=== PATIENT | male | born 2000 | race Hispanic/Latino ===

== ENCOUNTER 2022-11-01 13:54 | Emergency (ER) | payer OTHER ==
[~2022-11-01] VITALS: Ht 167.6 cm; Wt 63.5 kg
[2022-11-01 14:21] VITALS: BP 130/57
[2022-11-01] MEDS ORDERED: ACETAMINOPHEN 500 MG TABLET PO ONE (16:00)
[2022-11-01] MEDS ORDERED: ACET-66 PO (17:03)
[2022-11-01] MEDS ORDERED: CYCL5TAB PO (17:03)
== END 2022-11-01 17:36 | disposition home or self-care (01) ==
LOC: EDH 13:54
DX: S39.012A Strain of muscle, fascia and tendon of lower back, initial encounter (principal); I10 Essential (primary) hypertension; V43.62XA Car passenger injured in collision with other type car in traffic accident, initial encounter; Y93.89 Activity, other specified; Y92.89 Other specified places as the place of occurrence of the external cause; Y99.8 Other external cause status
CPT/HCPCS: 72100